=== PATIENT | male | born 1970 | race Caucasian/White ===

== ENCOUNTER 2022-07-17 18:40 | Emergency (ER) | payer SELFPAY ==
[2022-07-17 18:44] VITALS: BP 130/85; PULSE 94; RESP 18; TEMP 36.8; O2SAT 97; BMI 27.0
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
--- NOTE | 2022-07-17 18:58 | PC.NURSE ---
Addendum entered by Annalisa Guido, EMT 07/17/22 19:00: via stretcher Original Note: Pt gone to RAD via wheelchair
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
--- NOTE | 2022-07-17 19:07 | PC.NURSE ---
pt return to room
--- NOTE | 2022-07-17 19:14 | PC.NURSE ---
Dr. Navarro at [facility]
[2022-07-17 19:55] VITALS: BP 128/74; PULSE 86; RESP 18; TEMP 36.6
== END 2022-07-17 20:49 | disposition home or self-care (01) ==
PROVIDERS: Emergency Provider Student in an Organized Health Care Education/Training Program
DX: M25.562 Pain in left knee (principal); M25.512 Pain in left shoulder; V28.09XA Other motorcycle driver injured in noncollision transport accident in nontraffic accident, initial encounter
CPT/HCPCS: 73030; 73562; 99284